=== PATIENT | male | born 1945 | race Caucasian/White ===

== ENCOUNTER 2016-07-15 10:26 | Emergency (ER) | payer MEDICARE, MEDICAID ==
[~2016-07-15] VITALS: Ht 180.3 cm; Wt 81.6 kg
[~2016-07-15 10:26] MED LIST: ALBU2.5V7 INH; ASCO500T20 PO; ASPI-1063 PO; BISA5TAB10 PO; BUPR-120 PO; CLOP75TA2 PO; DULO60CA41 PO; FAMO40TA7 PO; FENT1PAT6 TD; FERR140T PO; LIDO5CRE14 TP; MULT-1117 PO; NAPR220C15 PO; NITSL SL; PREG75CA PO; SENN-153 PO; SIMV40TA2 PO; ZIN220 PO; ZOLP5TAB2 PO; [UNRECOGNIZED DRUG - CODE] INH; [UNRECOGNIZED DRUG - CODE] MC
[2016-07-15 10:30] VITALS: BP_SYST 132
[2016-07-15] MEDS ORDERED: NACL 0.9% 1,000 ML IV SCH (10:45)
[2016-07-15] MEDS ORDERED: cefTRIAXone 1 GM IVPB PREMIX 50 ML IV ONE (10:45)
[2016-07-15 11:51] LABS: BILIRUBIN,URINE NEGATIVE (NEGATIVE); BLOOD, URINE 3+ (NEGATIVE); CLARITY/URINE CLOUDY (CLEAR); COLOR,URINE YELLOW (YELLOW); GLUCOSE,URINE NEGATIVE (NEGATIVE); KETONES,URINE NEGATIVE (NEGATIVE); LEUKOCYTE ESTERASE ,URINE 3+ (NEGATIVE); NITRITE, URINE POSITIVE (NEGATIVE); PROTEIN URINE 1+ (NEGATIVE); UROBILINOGEN,URINE 0.2 (0.2-1.0)
[2016-07-15 11:55] LABS: ANION GAP 2 (5-15); CALCIUM 8.5 mg/dL (8.4-11.0); CHLORIDE 101 mmol/L (98-107); GLUCOSE 110 mg/dL (70-99); POTASSIUM 4.2 mmol/L (3.5-5.1); SODIUM SERUM 134 mmol/L (136-145); UREA NITROGEN, BLOOD 16 mg/dL (8-21)
[2016-07-15 11:58] LABS: BASOPHILS % (AUTO) 0.4 % (0.0-2.0); EOSINOPHILS # (AUTO) 0.3 K/uL (0.0-0.4); EOSINOPHILS % (AUTO) 3.5 % (0.0-4.0); HEMOGLOBIN 9.9 g/dL (14.0-18.0); INR 1.1 (0.80-1.20); LYMPHOCYTES # (AUTO) 1.6 K/uL (1.0-5.5); LYMPHOCYTES % (AUTO) 16.4 % (20.5-51.5); MEAN CORPUSCULAR HEMOGLOBIN 25 pg (27-31); MEAN CORPUSCULAR HGB CONC 32 % (32-36); MEAN CORPUSCULAR VOLUME 80 fL (79.0-98.0); MONOCYTES # (AUTO) 0.8 K/uL (0.0-1.0); NEUTROPHILS % (AUTO) 71.7 % (40.0-70.0); PLATELET COUNT (AUTO) 382 K/uL (130-430); PROTHROMBIN TIME 11.5 SECS (9.5-12.5); RED CELL DISTRIBUTION WIDTH 17.7 % (9.0-15.0); WHITE BLOOD COUNT (AUTO) 9.7 K/uL (4.8-10.8)
[2016-07-15 11:59] LABS: BACTERIA,URINE FEW /HPF (None Seen); RBC,URINE >100 /HPF (0-3); WBC,URINE >100 /HPF (0-3)
[2016-07-15 12:00] LABS: ALANINE AMINOTRANSFERASE 18 U/L (12-78); ALBUMIN 2.2 g/dL (3.4-4.8); ASPARTATE AMINOTRANSFERASE 27 U/L (10-37); TOTAL BILIRUBIN 0.3 mg/dL (0.0-1.0); TOTAL PROTEIN, SERUM 8.4 g/dL (6.4-8.3)
[2016-07-15] MEDS ORDERED: AZITHROMYCIN 500 MG in NS 250 ML IV ONE (12:15)
[2016-07-15] MEDS ORDERED: NACL 0.9% 1,000 ML IV ONE (13:00)
[2016-07-15] MEDS ORDERED: AZITHROMYCIN 500 MG/VIAL (ZITHROMAX) IV ONE (13:21)
[2016-07-15 15:59] VITALS: BP_SYST 90
== END 2016-07-15 15:55 | disposition short-term general hospital (02) ==
LOC: SED 10:26
DX: N39.0 Urinary tract infection, site not specified (principal); J18.9 Pneumonia, unspecified organism; J45.909 Unspecified asthma, uncomplicated; E11.9 Type 2 diabetes mellitus without complications; I10 Essential (primary) hypertension; Z95.1 Presence of aortocoronary bypass graft; Z79.899 Other long term (current) drug therapy; Z88.1 Allergy status to other antibiotic agents; Z88.8 Allergy status to other drugs, medicaments and biological substances
CPT/HCPCS: 36415; 51702; 71010; 80053; 81000; 83605; 83880; 84484; 85025; 85610; 85730; 87040; 87086; 87186; 93005; 96365; 96367; 99285; J0456; J0696; J7030; J7050

== ENCOUNTER 2016-10-18 18:27 | Emergency (ER) | payer MEDICARE, MEDICAID ==
[~2016-10-18] VITALS: Ht 185.4 cm; Wt 77.1 kg
[~2016-10-18 18:27] MED LIST changes: -BUPR-120 PO
[2016-10-18 18:29] VITALS: BP_SYST 145
[2016-10-18] MEDS ORDERED: NS 1000 ML BAG IV ONE (18:45)
[2016-10-18 19:31] LABS: BASOPHILS # (AUTO) 0.1 K/uL (0.0-0.2); BASOPHILS % (AUTO) 0.7 % (0.0-2.0); EOSINOPHILS # (AUTO) 0.2 K/uL (0.0-0.4); HEMATOCRIT 36.4 % (36-54); HEMOGLOBIN 11.2 g/dL (14.0-18.0); LYMPHOCYTES # (AUTO) 1.4 K/uL (1.0-5.5); LYMPHOCYTES % (AUTO) 14.7 % (20.5-51.5); MEAN CORPUSCULAR HEMOGLOBIN 24 pg (27-31); MEAN CORPUSCULAR HGB CONC 31 % (32-36); MEAN CORPUSCULAR VOLUME 76 fL (79.0-98.0); MONOCYTES # (AUTO) 0.7 K/uL (0.0-1.0); MONOCYTES % (AUTO) 7.5 % (1.7-9.3); NEUTROPHILS # (AUTO) 7.4 K/uL (1.8-7.7); NEUTROPHILS % (AUTO) 75.1 % (40.0-70.0); PLATELET COUNT (AUTO) 327 K/uL (130-430); RED BLOOD CELL COUNT(AUTO) 4.76 MIL/uL (4.2-6.2); RED CELL DISTRIBUTION WIDTH 19.8 % (9.0-15.0); WHITE BLOOD COUNT (AUTO) 9.8 K/uL (4.8-10.8)
[2016-10-18 19:35] LABS: ANION GAP 6 (5-15); CALCIUM 8.8 mg/dL (8.4-11.0); CHLORIDE 98 mmol/L (98-107); CREATININE 0.46 mg/dL (0.55-1.30); GLUCOSE 136 mg/dL (70-99); POTASSIUM 4.1 mmol/L (3.5-5.1); SODIUM SERUM 132 mmol/L (136-145); UREA NITROGEN, BLOOD 13 mg/dL (8-21)
[2016-10-18 19:37] LABS: PROTHROMBIN TIME 11.1 SECS (9.5-12.5)
[2016-10-18 19:39] LABS: ALANINE AMINOTRANSFERASE 22 U/L (12-78); ALBUMIN 2.8 g/dL (3.4-4.8); ASPARTATE AMINOTRANSFERASE 26 U/L (10-37); CREATINE KINASE, TOTAL 69 U/L (39-308); TOTAL BILIRUBIN 0.3 mg/dL (0.0-1.0); TOTAL PROTEIN, SERUM 9.1 g/dL (6.4-8.3)
[2016-10-18 20:25] LABS: BILIRUBIN,URINE NEGATIVE (NEGATIVE); BLOOD, URINE 3+ (NEGATIVE); CLARITY/URINE HAZY (CLEAR); COLOR,URINE AMBER (YELLOW); GLUCOSE,URINE NEGATIVE (NEGATIVE); KETONES,URINE NEGATIVE (NEGATIVE); LEUKOCYTE ESTERASE ,URINE 3+ (NEGATIVE); NITRITE, URINE NEGATIVE (NEGATIVE); PH,URINE 7.5 (5.0-8.0); PROTEIN URINE 1+ (NEGATIVE); UROBILINOGEN,URINE 0.2 (0.2-1.0)
[2016-10-18 20:52] LABS: BACTERIA,URINE MODERATE /HPF (None Seen); RBC,URINE >100 /HPF (0-3); WBC,URINE >100 /HPF (0-3)
[2016-10-18] MEDS ORDERED: ONDANSETRON HCL 4 MG/2 ML VIAL IVP ONE (21:00)
[2016-10-18] MEDS ORDERED: cefTRIAXone 1 GM IVPB PREMIX 50 ML IV ONE ×2 (21:00)
[2016-10-18] MEDS ORDERED: ASPIRIN 81 MG TAB.CHEW PO ONE (21:15)
[2016-10-18 22:50] VITALS: BP_SYST 112
== END 2016-10-18 22:50 | disposition short-term general hospital (02) ==
LOC: SED 18:27
DX: I21.4 Non-ST elevation (NSTEMI) myocardial infarction (principal); N39.0 Urinary tract infection, site not specified; I10 Essential (primary) hypertension; E11.9 Type 2 diabetes mellitus without complications; J45.909 Unspecified asthma, uncomplicated; Z88.1 Allergy status to other antibiotic agents; Z79.899 Other long term (current) drug therapy
CPT/HCPCS: 36415; 71010; 80053; 81000; 82550; 83605; 84484; 85025; 85610; 85730; 87040; 87086; 93005; 96361; 96365; 96375; 99291; J0696; J2405; J7030; 87186-TC

== ENCOUNTER 2017-02-03 05:48 | Inpatient (IN) | payer MEDICARE, MEDICAID ==
[~2017-02-03] VITALS: Ht 172.7 cm; Wt 77.1 kg
[2017-02-03] VITALS (18 sets, daily range): BP systolic 95–152
[2017-02-03] MEDS ORDERED: NACL 0.9% 1,000 ML IV ONE (06:09)
[2017-02-03] MEDS ORDERED: MORPHINE 4 MG/ML INJ. SYRINGE IVP ONE (06:45)
[2017-02-03 06:46] LABS: BASOPHILS # (AUTO) 0.1 K/uL (0.0-0.2); BASOPHILS % (AUTO) 0.7 % (0.0-2.0); EOSINOPHILS # (AUTO) 0.2 K/uL (0.0-0.4); HEMATOCRIT 35.3 % (36-54); HEMOGLOBIN 11.1 g/dL (14.0-18.0); LYMPHOCYTES # (AUTO) 1.1 K/uL (1.0-5.5); LYMPHOCYTES % (AUTO) 9.5 % (20.5-51.5); MEAN CORPUSCULAR HEMOGLOBIN 25 pg (27-31); MEAN CORPUSCULAR HGB CONC 32 % (32-36); MEAN CORPUSCULAR VOLUME 79 fL (79.0-98.0); MONOCYTES # (AUTO) 0.6 K/uL (0.0-1.0); NEUTROPHILS # (AUTO) 9.1 K/uL (1.8-7.7); NEUTROPHILS % (AUTO) 82.8 % (40.0-70.0); PLATELET COUNT (AUTO) 350 K/uL (130-430); RED BLOOD CELL COUNT(AUTO) 4.45 MIL/uL (4.2-6.2); RED CELL DISTRIBUTION WIDTH 17.4 % (9.0-15.0); WHITE BLOOD COUNT (AUTO) 11.1 K/uL (4.8-10.8)
[2017-02-03] MEDS ORDERED: PIPERACILLIN/TAZO 3.375 GM in NS 50 ML IV ONE (07:00)
[2017-02-03] MEDS ORDERED: cefTRIAXone 1 GM IVPB PREMIX 50 ML IV ONE (07:00)
[2017-02-03] MEDS ORDERED: PIPERACILLIN/TAZOBACTAM 3.375 GM/VIAL (ZOSYN) IV ONE ×2 (07:05)
[2017-02-03 07:23] LABS: ANION GAP 6 (5-15); CALCIUM 8.8 mg/dL (8.4-11.0); CHLORIDE 100 mmol/L (98-107); CREATININE 0.32 mg/dL (0.55-1.30); GLUCOSE 127 mg/dL (70-99); POTASSIUM 4.5 mmol/L (3.5-5.1); SODIUM SERUM 136 mmol/L (136-145); UREA NITROGEN, BLOOD 16 mg/dL (8-21)
[2017-02-03 07:31] LABS: ALANINE AMINOTRANSFERASE 9 U/L (12-78); ALBUMIN 2.5 g/dL (3.4-4.8); ASPARTATE AMINOTRANSFERASE 26 U/L (10-37); TOTAL BILIRUBIN 0.5 mg/dL (0.0-1.0)
[2017-02-03] MEDS ORDERED: IPRATROPIUM/ALBUTEROL SULFATE 3 ML AMPUL.NEB INH ONE (08:30)
[2017-02-03] MEDS ORDERED: IPRATROPIUM/ALBUTEROL SULFATE 3 ML AMPUL.NEB ONE (08:36)
[2017-02-03] MEDS ORDERED: SIMV40TA2 PO (08:45)
[2017-02-03] MEDS ORDERED: ASCO500T20 PO (08:45)
[2017-02-03] MEDS ORDERED: BISA5TAB10 PO (08:45)
[2017-02-03] MEDS ORDERED: FERR-57 PO (08:45)
[2017-02-03] MEDS ORDERED: PRO20 PO (08:45)
[2017-02-03] MEDS ORDERED: PREG75CA PO (08:45)
[2017-02-03] MEDS ORDERED: DULO60CA41 PO (08:45)
[2017-02-03] MEDS ORDERED: NITSL SL (08:45)
[2017-02-03] MEDS ORDERED: VITD2000 PO (08:45)
[2017-02-03] MEDS ORDERED: BISA-79 PO (08:45)
[2017-02-03] MEDS ORDERED: MULT PO (08:45)
[2017-02-03] MEDS ORDERED: COLL30OI2 TP (08:45)
[2017-02-03] MEDS ORDERED: CLOP75TA2 PO (08:45)
[2017-02-03] MEDS ORDERED: ZIN220 PO (08:45)
[2017-02-03] MEDS ORDERED: FERR15DR21 PO (08:45)
[2017-02-03] MEDS ORDERED: FAMO40TA35 PO (08:45)
[2017-02-03] MEDS ORDERED: FENT1PAT6 TD (08:45)
[2017-02-03] MEDS ORDERED: LIDO30CR TP (08:45)
[2017-02-03] MEDS ORDERED: NAPR-688 PO (08:45)
[2017-02-03] MEDS ORDERED: IPRA3AMP9 INH (08:45)
[2017-02-03] MEDS ORDERED: CALMO120 TP (08:45)
[2017-02-03] MEDS ORDERED: GLU500 PO (08:45)
[2017-02-03] MEDS ORDERED: ASPI-1063 PO (08:45)
[2017-02-03] MEDS ORDERED: ACETAMINOPHEN 325 MG TABLET PO PRN (09:00)
[2017-02-03] MEDS ORDERED: NITROGLYCERIN 0.4 MG TAB.SUBL SL SCH (09:00)
[2017-02-03] MEDS ORDERED: INSULIN ASPART 100 UNITS/ML, 10 ML VIAL (NovoLOG) SUBCUT PRN (09:00)
[2017-02-03] MEDS: BISACODYL 5 MG TABLET.DR (DULCOLAX) PO SCH ×2 (10:04→20:40)
[2017-02-03] MEDS: ASPIRIN 81 MG TABLET(ECOTRIN) PO SCH (10:04)
[2017-02-03] MEDS: FAMOTIDINE 20 MG TABLET PO SCH (10:04)
[2017-02-03] MEDS: SIMVASTATIN 40 MG TABLET PO SCH (10:05)
[2017-02-03] MEDS: FLUoxetine HCL 20 MG CAPSULE (PROzac) PO SCH ×2 (10:05→10:30)
[2017-02-03] MEDS: CLOPIDOGREL BISULFATE 75 MG TABLET PO SCH (10:05)
[2017-02-03] MEDS: PREGABALIN 75 MG CAPSULE (LYRICA) PO SCH ×2 (10:06→10:30)
[2017-02-03] MEDS: DULoxetine HCL 30 MG CAPSULE.DR (CYMBALTA) PO SCH ×2 (10:06→10:30)
[2017-02-03] MEDS: NACL 0.9% 1,000 ML IV SCH (12:16)
[2017-02-03] MEDS: AZITHROMYCIN 500 MG in NS 250 ML IV SCH (12:26)
[2017-02-03] MEDS: PIPERACILLIN/TAZO 2.25G/DEX-IS 50 ML IV SCH ×3 (12:28→23:25)
[2017-02-03] MEDS: IPRATROPIUM/ALBUTEROL SULFATE 3 ML AMPUL.NEB INH SCH ×2 (13:25→19:43)
[2017-02-03] MEDS: fentaNYL 50 MCG/HR PATCH TD SCH (16:45)
[2017-02-04] VITALS (25 sets, daily range): BP systolic 89–172
[2017-02-04] MEDS ORDERED: FLU VACC QS 2017-18(36MOS+)/PF 0.5 ML/SYR SYRINGE I.M. PRN (00:30)
[2017-02-04] MEDS: IPRATROPIUM/ALBUTEROL SULFATE 3 ML AMPUL.NEB INH SCH ×4 (01:10→20:00)
[2017-02-04] MEDS: NACL 0.9% 1,000 ML IV SCH (04:32)
[2017-02-04] MEDS: PIPERACILLIN/TAZO 2.25G/DEX-IS 50 ML IV SCH ×4 (05:03→23:09)
[2017-02-04 06:22] LABS: BASOPHILS # (AUTO) 0.1 K/uL (0.0-0.2); BASOPHILS % (AUTO) 0.4 % (0.0-2.0); EOSINOPHILS # (AUTO) 0.2 K/uL (0.0-0.4); EOSINOPHILS % (AUTO) 1.4 % (0.0-4.0); HEMOGLOBIN 11.1 g/dL (14.0-18.0); LYMPHOCYTES # (AUTO) 0.8 K/uL (1.0-5.5); LYMPHOCYTES % (AUTO) 4.5 % (20.5-51.5); MEAN CORPUSCULAR HEMOGLOBIN 25 pg (27-31); MEAN CORPUSCULAR HGB CONC 32 % (32-36); MEAN CORPUSCULAR VOLUME 80 fL (79.0-98.0); MONOCYTES # (AUTO) 0.9 K/uL (0.0-1.0); MONOCYTES % (AUTO) 5.2 % (1.7-9.3); NEUTROPHILS # (AUTO) 14.8 K/uL (1.8-7.7); NEUTROPHILS % (AUTO) 88.5 % (40.0-70.0); PLATELET COUNT (AUTO) 349 K/uL (130-430); RED BLOOD CELL COUNT(AUTO) 4.38 MIL/uL (4.2-6.2); WHITE BLOOD COUNT (AUTO) 16.8 K/uL (4.8-10.8)
[2017-02-04 06:49] LABS: ALANINE AMINOTRANSFERASE 15 U/L (12-78); ALBUMIN 2.4 g/dL (3.4-4.8); ANION GAP 7 (5-15); ASPARTATE AMINOTRANSFERASE 19 U/L (10-37); CALCIUM 9.5 mg/dL (8.4-11.0); CHLORIDE 102 mmol/L (98-107); CREATININE 0.36 mg/dL (0.55-1.30); GLUCOSE 124 mg/dL (70-99); POTASSIUM 3.7 mmol/L (3.5-5.1); SODIUM SERUM 137 mmol/L (136-145); TOTAL BILIRUBIN 0.4 mg/dL (0.0-1.0); UREA NITROGEN, BLOOD 9 mg/dL (8-21)
[2017-02-04] MEDS: BISACODYL 5 MG TABLET.DR (DULCOLAX) PO SCH ×2 (09:00→21:27)
[2017-02-04] MEDS: ASPIRIN 81 MG TABLET(ECOTRIN) PO SCH ×3 (09:00→14:14)
[2017-02-04] MEDS: CLOPIDOGREL BISULFATE 75 MG TABLET PO SCH (09:00)
[2017-02-04] MEDS: FAMOTIDINE 20 MG TABLET PO SCH ×3 (09:00→14:15)
[2017-02-04] MEDS: SIMVASTATIN 40 MG TABLET PO SCH (09:00)
[2017-02-04] MEDS: PREGABALIN 75 MG CAPSULE (LYRICA) PO SCH ×4 (09:00→21:27)
[2017-02-04] MEDS ORDERED: 0.45% NACL 1,000 ML IV SCH (09:15)
[2017-02-04] MEDS: fentaNYL 50 MCG/HR PATCH TD SCH (09:33)
[2017-02-04] MEDS: AZITHROMYCIN 500 MG in NS 250 ML IV SCH (11:22)
[2017-02-04] MEDS: FLUoxetine HCL 20 MG CAPSULE (PROzac) PO SCH ×2 (13:13→14:15)
[2017-02-04] MEDS: DULoxetine HCL 30 MG CAPSULE.DR (CYMBALTA) PO SCH ×2 (13:14→14:14)
[2017-02-04] MEDS ORDERED: NACL 0.9% 1,000 ML IV SCH (22:30)
[2017-02-04] MEDS ORDERED: NS 1000 ML BAG IV ONE (23:00)
[2017-02-14] MEDS ORDERED: LORA10TA7 PO (16:25)
== END 2017-02-04 23:55 | disposition short-term general hospital (02) | DRG 871 ==
LOC: SED 05:48 → MERGE 08:22 → SIC 08:22
PROVIDERS: ADMIT Internal Medicine; ATTEND Internal Medicine
PROC: 5A09457 Assistance with Respiratory Ventilation, 24-96 Consecutive Hours, Continuous Positive Airway Pressure (ICD-10-PCS; principal; 2017-02-03)
DX: A41.9 Sepsis, unspecified organism (principal); J96.01 Acute respiratory failure with hypoxia; E43 Unspecified severe protein-calorie malnutrition; G82.50 Quadriplegia, unspecified; L89.319 Pressure ulcer of right buttock, unspecified stage; L89.329 Pressure ulcer of left buttock, unspecified stage; J90 Pleural effusion, not elsewhere classified; J18.1 Lobar pneumonia, unspecified organism; N39.0 Urinary tract infection, site not specified; E11.9 Type 2 diabetes mellitus without complications; N20.0 Calculus of kidney; I11.9 Hypertensive heart disease without heart failure; Z93.0 Tracheostomy status; R00.1 Bradycardia, unspecified; M25.512 Pain in left shoulder; M25.511 Pain in right shoulder; G89.29 Other chronic pain; E78.5 Hyperlipidemia, unspecified; I25.10 Atherosclerotic heart disease of native coronary artery without angina pectoris; K21.9 Gastro-esophageal reflux disease without esophagitis; N31.9 Neuromuscular dysfunction of bladder, unspecified; Z87.891 Personal history of nicotine dependence; Z87.442 Personal history of urinary calculi; Z95.1 Presence of aortocoronary bypass graft; Z68.25 Body mass index [BMI] 25.0-25.9, adult; Z88.1 Allergy status to other antibiotic agents; Z93.3 Colostomy status
CPT/HCPCS: 36415; 36600; 71010; 80053; 82803-TC; 82962; 83605; 83880; 84484; 85025; 87040-TC; 87070-TC; 87081; 87186-TC; 87205-TC; 93005; 94640; 94660; 96365; 96368; 99291; A6209; J0456; J0696; J1815; J2270; J2543; J7030; J7050; J7060